=== PATIENT | male | born 1990 | race Two or more races ===

== ENCOUNTER 2025-03-20 20:05 | Emergency (ER) | payer BC, OTHER ==
[~2025-03-20] VITALS: Ht 177.8 cm; Wt 119.7 kg
[2025-03-20 20:58] VITALS: BP 132/72; PULSE 76; RESP 18; TEMP 98.2; O2SAT 96
[2025-03-20] MEDS ORDERED: ACET500T58 PO (21:24)
[2025-03-20] MEDS ORDERED: AMOX875T4 PO (21:24)
[2025-03-20] MEDS ORDERED: CIPR1SUS8 OT (21:24)
--- NOTE | 2025-03-20 21:24 | ED.PDOC ---
Eye-HPI HPI Comments 34-year-old male presents to ER with complaints of right-sided earache pain x 4 days. Patient reports that he started experiencing right-sided earache pain and muffled hearing to right ear four days ago with associated bleeding from right ear after sneezing today. He reports 8/10 right-sided earache pain, denying any other current pain. Denies use of medications for current symptoms. Patient presents to ER ambulatory on arrival, with steady gait, in no distress. Denies fever, headache, dizziness, nausea/vomiting, skin changes, trauma or any further symptoms/complaints Chief Complaint: Earache Time Seen by MD: 20:20 Primary Care Provider: SAURABH Reviewed Notes: Nurses Notes, Medications, Allergies Allergies: Coded Allergies: NO KNOWN ALLERGIES (Unverified , 03/20/25) Home Meds Active Scripts Acetaminophen (Acetaminophen) 500 Mg Tab, 500 MG PO Q4HPRN, #30 TAB 0 Refills Prov:LUÍS SAHU 03/20/25 Ciprofloxacin-Dexamethasone (Ciprofloxacin/Dexamethaso 0.3-0.1 %) 1 Kenzie Kenzie, 4 DROP OT BID for 7 Days, #1 BOTTLE 0 Refills Prov:LUÍS SAHU 03/20/25 Amoxicillin & Pot Clavulanate (Amoxicillin/Potassium Cla) 875 Mg Tab, 1 TAB PO BID for 7 Days, #14 TAB 0 Refills Prov:LUÍS SAHU 03/20/25 Information Source: Patient Mode of Arrival: Ambulatory Past Medical History PAST MEDICAL HISTORY: Denies Surgical History: Denies all surgeries Family History Family History: Unknown Social History Smoker: Non-Smoker Alcohol: Denies ETOH Use Drugs: Denies Drug Use Lives In: Home Constitutional: denies: chills, diaphoresis, fatigue, fever, malaise, sweats, weakness, others EENTM: reports: others ( STATED IN HPI) Respiratory: denies: cough, hemoptysis, orthopnea, SOB at rest, shortness of breath, SOB with excertion, stridor, wheezing, others Cardiovascular: denies: chest pain, dizzy spells, diaphoresis, Dyspnea on exertion, edema, irregular heart beat, left arm pain, lightheadedness, palpitations, PND, syncope, others Gastrointestinal: denies: abdomen distended, abdominal pain, blood streaked bowels, constipated, diarrhea, dysphagia, difficulty swallowing, hematemesis, melena, nausea, poor appetite, poor fluid intake, rectal bleeding, rectal pain, vomiting, others Genitourinary: denies: burning, dysuria, flank pain, frequency, hematuria, incontinence, penile discharge, penile sore, pain, testicle pain, testicle swelling, urgency, others Neurological: denies: dizziness, fainting, headache, left sided numbness, left sided weakness, numbness, paresthesia, pre-existing deficit, right sided numbness, right sided weakness, seizure, speech problems, tingling, tremors, weakness, others Musculoskeletal: denies: back pain, gout, joint pain, joint swelling, muscle pain, muscle stiffness, neck pain, others Integumetry: denies: bruises, change in color, change in hair/nails, dryness, laceration, lesions, lumps, rash, wounds, others Allergic/Immunocompromised: denies: Difficulty Healing, Frequent Infections, Hives, Itching, others Hematologic/Lymphatic: denies: anemia, blood clots, easy bleeding, easy bruising, swollen glands, others Endocrine: denies: excessive hunger, excessive sweating, excessive thirst, excessive urination, flushing, intolerance to cold, intolerance to heat, unexplained weight gain, unexplained weight loss, others Psychiatric: denies: anxiety, bipolar disorder, depression, hopeless, panic disorder, schizophrenia, sleepless, suicidal, others Physical Exam General Appearance: No Apparent Distress, Obese HEENT: PERRL/EOMI, Other (Small right-sided TM perforation without active bleeding, minimal dried blood noted in right middle ear canal, slight decreased whispered hearing also noted on right, no skin changes noted. Remainder bilateral ear exam-unremarkable) Neck: Full Range of Motion, Non-Tender, Normal Respiratory: Chest Non-Tender, Lungs Clear, No Accessory Muscle Use, No Respiratory Distress, Normal Breath Sounds Cardiovascular: No Murmur, No Gallop, Regular Rate/Rhythm Breast Exam: Deferred Gastrointestinal: NOT DONE Genitalia: Deferred Pelvic: Deferred Rectal: Deferred Extremities: Normal capillary refill, Normal range of motion Neurologic: Alert, local coordinator II-XII nml as Tested, No Motor Deficits, Normal Affect, Normal Mood, No Sensory Deficits Cerebellar Function: Normal Reflexes: Normal Skin: Dry, Normal Color, Warm Lymphatic: No Adenopathy Was a procedure done? Was a procedure done?: No Sedation Sedation?: No EENT DIFF Eye: N/A Ear: Abrasion, Cerumen Impaction, Otitis Externa, Otitis Media X-Ray, Labs, Meds, VS Vital Signs Date Time Temp Pulse Resp B/P (MAP) Pulse Ox O2 Delivery O2 Flow Rate FiO2 03/20/25 20:58 98.2 76 18 132/72 (92) 96 98.2 03/20/25 20:58 96 Room Air* 0 21 03/20/25 20:20 98.2 76 18 132/72 (92) 96 98.2 Rocephin 1 g IM ordered Advised to keep ear canal dry Advised to follow up with PCP and ENT in 1-2 days Patient verbalized understanding and agreeable with current plan of care Advised to return to ER immediately if symptoms worsen Time of 1ST Reevaluation: 21:04 Reevaluation 1ST: N/A Patient Education/Counseling: Diagnosis, Treatment, Prognosis, Need For Follow Up Family Education/Counseling: No Family Present Departure 1 Departure Time of Disposition: 21:20 Impression: Primary Impression: Tympanic membrane rupture Qualified Codes: H72.91 - Unspecified perforation of tympanic membrane, right ear Disposition: 01 HOME / SELF CARE / HOMELESS Condition: Stable e-Prescriptions Acetaminophen (Acetaminophen) 500 Mg Tab 500 MG PO Q4HPRN, #30 TAB 0 Refills Prov: LUÍS SAHU 03/20/25 Ciprofloxacin-Dexamethasone (Ciprofloxacin/Dexamethaso 0.3-0.1 %) 1 Kenzie Kenzie 4 DROP OT BID for 7 Days, #1 BOTTLE 0 Refills Prov: LUÍS SAHU 03/20/25 Amoxicillin & Pot Clavulanate (Amoxicillin/Potassium Cla) 875 Mg Tab 1 TAB PO BID for 7 Days, #14 TAB 0 Refills Prov: LUÍS SAHU 03/20/25 Critical Care Note Critical Care Time?: No Stability Stability form required: No Heart Score Heart Score: Heart Score Response (Comments) Value History N/A 0 EKG N/A 0 Age N/A 0 Risk Factors N/A 0 Troponin N/A 0 Total 0 LUÍS SAHU March 20, 2025 21:24
[2025-03-20] MEDS: cefTRIAXone SOD 1,000 MG VL IM ONE (21:29)
== END 2025-03-20 21:34 | disposition home or self-care (01) ==
LOC: ER 20:05
DX: H72.91 Unspecified perforation of tympanic membrane, right ear (principal)
CPT/HCPCS: 96372; 99283; J0696